=== PATIENT | male | born 1955 | race Caucasian/White ===

== ENCOUNTER → 2016-08-26 | Outpatient (CLI) | payer SELFPAY ==
[~2016-08-26] MED LIST: ACETAMINOPHEN500 MG PO; ALDACTONE25 MG PO; CORDARONE,PACE200 MG PO; COREG25 MG PO; DEMADEX20 M1 PO; DEMADEX20 MG PO; ELIQUIS5 MG PO; ENTRESTO 97 MG1 EACH PO; GLUCOPHAGE1000 MG PO; K-TAB ER10 MEQ PO; LEVEMIR100 UNIT/1 SUB-Q; NOVOLOG100 UNIT/M SUB-Q; NYSTOP POWD60 GM/BOT TOP; PROAIR HFA8.5 GM INH; SYMBICORT 16010.2 GM INH; ZESTRIL2.5 MG PO
[2016-08-26 18:35] LABS: BASOPHIL # 0.1 K/uL (0.0-0.2); BASOPHIL % 0.7 %; EOSINOPHIL # 0.1 K/uL (0.0-0.5); EOSINOPHIL % 1.6 %; HEMATOCRIT 49.3 % (37.0-53.0); IMMATURE GRANULOCYTE % 0.5 %; LYMPHOCYTE # 3.2 K/uL (0.8-4.0); LYMPHOCYTE % 38.2 %; MCHC 32.5 gm/dL (32.0-36.5); MCV 95.5 fl (83.0-98.0); MONOCYTE % 12.3 %; MPV 10.3 fl (9.4-12.4); NEUTROPHIL # (ANC) 3.9 K/uL (1.4-9.0); NEUTROPHIL % 46.7 %; NRBC % 0 /100WBC (0-0.00); PLATELET COUNT 288 K/uL (150-450); RBC 5.16 M/uL (3.50-5.50); RDW-CV 13.8 % (11.9-14.6); WBC 8.3 K/uL (4.0-11.0)
[2016-08-26 18:50] LABS: ALBUMIN 3.4 gm/dL (3.5-5.0); ALK PHOS 121 IU/L (33-138); ALT 16 IU/L (12-78); ANION GAP 13.2 (10.0-19.0); AST 15 IU/L (10-40); BLOOD UREA NITROGEN 16 mg/dL (6-24); CALCIUM 8.7 mg/dL (8.5-10.5); CHLORIDE 103 mMol/L (96-110); CO2 27 mMol/L (22-32); CREATININE 0.8 mg/dL (0.6-1.3); ESTIMATED GFR (MDRD EQUATION) > 60; POTASSIUM 4.2 mMol/L (3.7-5.1); SODIUM 139 mMol/L (135-145); TOTAL BILIRUBIN 0.4 mg/dL (0.0-1.5); TOTAL PROTEIN 7.7 g/dL (6.0-8.4)
== END | disposition disaster alternative care site (69) ==
LOC: LNHI 18:15
PROVIDERS: Internal Medicine Cardiovascular Disease
DX: I48.0 Paroxysmal atrial fibrillation (principal); I42.8 Other cardiomyopathies

== ENCOUNTER → 2016-10-22 | Outpatient (CLI) | payer SELFPAY ==
[2016-10-22 16:42] LABS: ANION GAP 12.3 (10.0-19.0); BLOOD UREA NITROGEN 25 mg/dL (6-24); CALCIUM 8.9 mg/dL (8.5-10.5); CHLORIDE 103 mMol/L (96-110); CO2 26 mMol/L (22-32); CREATININE 0.9 mg/dL (0.6-1.3); ESTIMATED GFR (MDRD EQUATION) > 60; POTASSIUM 4.3 mMol/L (3.7-5.1); SODIUM 137 mMol/L (135-145)
== END | disposition disaster alternative care site (69) ==
LOC: LNHI 16:14
PROVIDERS: Internal Medicine Cardiovascular Disease
DX: I50.22 Chronic systolic (congestive) heart failure (principal); I49.3 Ventricular premature depolarization; I48.1 Persistent atrial fibrillation

== ENCOUNTER → 2017-01-04 | Outpatient (CLI) | payer SELFPAY ==
[2017-01-04 10:43] LABS: BASOPHIL # 0.1 K/uL (0.0-0.2); BASOPHIL % 0.7 %; EOSINOPHIL # 0.1 K/uL (0.0-0.5); HEMATOCRIT 41.8 % (37.0-53.0); HEMOGLOBIN 14.9 g/dL (11.0-16.0); IMMATURE GRANULOCYTE # 0.1 K/uL (0.0-0.3); IMMATURE GRANULOCYTE % 0.8 %; LYMPHOCYTE # 2.8 K/uL (0.8-4.0); LYMPHOCYTE % 31.2 %; MCH 32.4 pg (27.0-34.0); MCHC 35.6 gm/dL (32.0-36.5); MCV 90.9 fl (83.0-98.0); MONOCYTE # 0.8 K/uL (0.0-1.0); MONOCYTE % 8.8 %; MPV 10.3 fl (9.4-12.4); NEUTROPHIL # (ANC) 5.2 K/uL (1.4-9.0); NEUTROPHIL % 57.5 %; NRBC % 0 /100WBC (0-0.00); PLATELET COUNT 339 K/uL (150-450); RDW-CV 12.8 % (11.9-14.6)
[2017-01-04 10:59] LABS: ALBUMIN 3.5 gm/dL (3.5-5.0); ALK PHOS 125 IU/L (33-138); ALT 23 IU/L (12-78); ANION GAP 14.7 (10.0-19.0); AST 21 IU/L (10-40); BLOOD UREA NITROGEN 36 mg/dL (6-24); CALCIUM 9.2 mg/dL (8.5-10.5); CHLORIDE 93 mMol/L (96-110); CO2 26 mMol/L (22-32); CPK 167 IU/L (35-332); CREATININE 1.1 mg/dL (0.6-1.3); POTASSIUM 4.7 mMol/L (3.7-5.1); SODIUM 129 mMol/L (135-145); TOTAL BILIRUBIN 0.3 mg/dL (0.0-1.5); TOTAL PROTEIN 7.9 g/dL (6.0-8.4)
== END ==
LOC: LNHI 10:38
PROVIDERS: Internal Medicine Cardiovascular Disease
DX: I50.22 Chronic systolic (congestive) heart failure (principal); I49.3 Ventricular premature depolarization; I48.1 Persistent atrial fibrillation